=== PATIENT | female | born 1980 | race Caucasian/White ===

== ENCOUNTER 2024-05-22 06:56 | Inpatient (IN) | payer OTHER ==
[2024-05-22 07:05] VITALS: BMI 22.8
[2024-05-22] MEDS ORDERED: dilTIAZem HCL 125 MG/25 ML - 25 ML VIAL ONE (08:14)
[2024-05-22] MEDS: dilTIAZem HCL 50 MG/10 ML - 10 ML VIAL IVPUSH ONE (08:29)
[2024-05-22 08:48] LABS: BASO % 0.7 % (0-2.0); EOS % 0.9 % (0-4.5); HEMATOCRIT 45.3 % (32.4-45.2); HEMOGLOBIN 15.3 GM/dL (10.7-15.3); LYMPH % 27.6 % (8-40); MCH 30.2 pg (25.7-33.7); MCHC 33.7 g/dl (32.0-36.0); MEAN CELL VOLUME 89.6 fl (80-96); MEAN PLT VOLUME 7.9 fl (7.5-11.1); MONO % 7.8 % (3.8-10.2); PLATELET COUNT 286 10^3/uL (134-434); RBC 5.05 M/mm3 (3.60-5.2); RDW 12.8 % (11.6-15.6); WHITE BLOOD COUNT 10.5 K/mm3 (4.0-10.0)
[2024-05-22] MEDS ORDERED: dilTIAZem HCL 30 MG TABLET ONE (09:14)
[2024-05-22 09:17] LABS: POTASSIUM 4.7 mmol/L (3.5-5.1)
[2024-05-22 09:19] LABS: ALBUMIN 3.7 g/dl (3.4-5.0); BLOOD UREA NITROGEN 9.4 mg/dL (7-18); CALCIUM 9.8 mg/dL (8.5-10.1)
[2024-05-22 09:20] LABS: MAGNESIUM 2.1 mg/dL (1.8-2.4)
[2024-05-22] MEDS: dilTIAZem HCL 30 MG TABLET PO ONE (09:21)
[2024-05-22 09:22] LABS: CREATININE 0.9 mg/dL (0.55-1.3)
[2024-05-22 09:24] LABS: BILIRUBIN,TOTAL 0.6 mg/dL (0.2-1); TOT PROT 7.4 g/dl (6.4-8.2)
[2024-05-22] MEDS: SODIUM CHLORIDE 1,000 ML IV STA (10:02)
[2024-05-22] MEDS: SODIUM CHLORIDE 500 ML IV STA (10:02)
[2024-05-22 13:37] LABS: EPI CELLS 17 /uL (0-25.1); HYALINE CASTS 0 /uL (0-3.1); PH,URINE 7.5 (5.0-8.0); URINE APPEARANCE CLEAR; URINE BACTERIA 309 /uL (0-1359); URINE BILIRUBIN NEGATIVE (NEGATIVE); URINE COLOR YELLOW; URINE GLUCOSE (UA) NEGATIVE (NEGATIVE); URINE KETONE TRACE (NEGATIVE); URINE LEUK ESTERASE TRACE (NEGATIVE); URINE NITRITE NEGATIVE (NEGATIVE); URINE PROTEIN NEGATIVE (NEGATIVE); URINE RBC 8 /uL (0-23.9); URINE UROBILINOGEN 0.2 mg/dL (0.2-1.0); URINE WBC 18 /uL (0-25.8)
[2024-05-22] MEDS ORDERED: metoPROLOL SUCCINATE 25 MG TAB.SR.24H (FP) PO ONE (13:39)
[2024-05-22] MEDS: metoPROLOL SUCCINATE 25 MG TAB.SR.24H (FP) PO ONE (13:40)
[2024-05-22 18:57] LABS: CHOLESTEROL 227 mg/dL (50-200)
[2024-05-22 19:00] LABS: HDL CHOLESTEROL 107 mg/dL (40-60); LDL CHOLESTEROL (ONLY SJRH) 111 mg/dL (5-100)
[2024-05-22] MEDS ORDERED: APIXABAN 5 MG TABLET PO SCH (22:00)
[2024-05-22] MEDS ORDERED: ATORVASTATIN CA 20 MG TABLET (FP) ONE (22:58)
[2024-05-22] MEDS: ATORVASTATIN CA 20 MG TABLET (FP) PO SCH (23:07)
[2024-05-23 06:14] LABS: BASO % 0.5 % (0-2.0); HEMOGLOBIN 14.5 GM/dL (10.7-15.3); LYMPH % 33.7 % (8-40); MCH 30.2 pg (25.7-33.7); MCHC 33.8 g/dl (32.0-36.0); MEAN CELL VOLUME 89.2 fl (80-96); MEAN PLT VOLUME 7.4 fl (7.5-11.1); MONO % 7.9 % (3.8-10.2); NEUT % 55.9 % (42.8-82.8); PLATELET COUNT 244 10^3/uL (134-434); RBC 4.82 M/mm3 (3.60-5.2); RDW 12.5 % (11.6-15.6); WHITE BLOOD COUNT 8.6 K/mm3 (4.0-10.0)
[2024-05-23 06:34] LABS: POTASSIUM 4.3 mmol/L (3.5-5.1)
[2024-05-23 06:36] LABS: CALCIUM 8.6 mg/dL (8.5-10.1)
[2024-05-23 06:37] LABS: ALBUMIN 3.3 g/dl (3.4-5.0); BLOOD UREA NITROGEN 9.7 mg/dL (7-18)
[2024-05-23 06:40] LABS: CREATININE 0.9 mg/dL (0.55-1.3)
[2024-05-23 06:42] LABS: BILIRUBIN,TOTAL 0.6 mg/dL (0.2-1); TOT PROT 6.7 g/dl (6.4-8.2)
[2024-05-23] MEDS ORDERED: metoPROLOL SUCCINATE 25 MG TAB.SR.24H (FP) PO ONE (09:05)
[2024-05-23] MEDS: metoPROLOL SUCCINATE 25 MG TAB.SR.24H (FP) PO SCH (09:48)
[2024-05-23] MEDS ORDERED: IBUPROFEN 600 MG TABLET (FP) PO ONE (10:10)
[2024-05-23] MEDS ORDERED: COLCHICINE 0.6 MG TAB ONE (10:11)
[2024-05-23] MEDS ORDERED: FAMOTIDINE 20 MG TABLET ONE (10:11)
[2024-05-23] MEDS: COLCHICINE 0.6 MG TAB PO SCH (10:15)
[2024-05-23] MEDS: IBUPROFEN 600 MG TABLET (FP) PO SCH (10:16)
[2024-05-23] MEDS: FAMOTIDINE 20 MG TABLET PO SCH (10:16)
[2024-05-23 15:04] VITALS: BP 127/90; PULSE 69; RESP 20; TEMP 98.2
== END 2024-05-23 15:08 | disposition home or self-care (01) | DRG 207 ==
LOC: JER 06:56 → JERBED 13:45 → OBSVTOIN 13:57
PROVIDERS: ADMIT Internal Medicine; ATTEND Internal Medicine
DX: I30.1 Infective pericarditis (principal); I47.10 Supraventricular tachycardia, unspecified; E78.5 Hyperlipidemia, unspecified; I31.9 Disease of pericardium, unspecified; I48.0 Paroxysmal atrial fibrillation; I31.39 Other pericardial effusion (noninflammatory); E78.00 Pure hypercholesterolemia, unspecified; I49.9 Cardiac arrhythmia, unspecified; R00.2 Palpitations; R06.02 Shortness of breath; R07.89 Other chest pain
CPT/HCPCS: 36415; 71045-TC-FY; 80053; 80061; 81003; 82550; 83036; 83735; 84439; 84443; 84479; 84484; 84703; 85025; 85651; 86140; 87086; 93005; 93010; 93306-TC; 99285-25; G0378